=== PATIENT | male | born 1955 | race Caucasian/White ===

== ENCOUNTER → 2019-05-22 | Outpatient (CLI) | payer OTHER | LOC: CAT 10:48 | DX: Z13.6 Encounter for screening for cardiovascular disorders (principal); I25.10 Atherosclerotic heart disease of native coronary artery without angina pectoris; E78.00 Pure hypercholesterolemia, unspecified ==

== ENCOUNTER → 2019-06-21 | Outpatient (CLI) | payer OTHER | LOC: SJCVC 13:18 → SJCVCIMAG 13:18 | PROVIDERS: ATTEND Internal Medicine Cardiovascular Disease | DX: I65.23 Occlusion and stenosis of bilateral carotid arteries (principal); I25.119 Atherosclerotic heart disease of native coronary artery with unspecified angina pectoris; E78.00 Pure hypercholesterolemia, unspecified; K21.9 Gastro-esophageal reflux disease without esophagitis; M19.90 Unspecified osteoarthritis, unspecified site; Z79.899 Other long term (current) drug therapy ==

== ENCOUNTER → 2019-12-24 | Outpatient (CLI) | payer OTHER | LOC: SJCVC 13:33 | PROVIDERS: ATTEND Internal Medicine Cardiovascular Disease | DX: I25.10 Atherosclerotic heart disease of native coronary artery without angina pectoris (principal); I25.119 Atherosclerotic heart disease of native coronary artery with unspecified angina pectoris; R94.31 Abnormal electrocardiogram [ECG] [EKG]; R93.1 Abnormal findings on diagnostic imaging of heart and coronary circulation; E78.00 Pure hypercholesterolemia, unspecified; I65.23 Occlusion and stenosis of bilateral carotid arteries; Z79.899 Other long term (current) drug therapy ==

== ENCOUNTER → 2020-07-22 | Outpatient (CLI) | payer OTHER | LOC: SJCVCIMAG 07:42 | PROVIDERS: ATTEND Internal Medicine Cardiovascular Disease | DX: I11.9 Hypertensive heart disease without heart failure (principal); I49.9 Cardiac arrhythmia, unspecified; R93.1 Abnormal findings on diagnostic imaging of heart and coronary circulation; I25.119 Atherosclerotic heart disease of native coronary artery with unspecified angina pectoris; E78.00 Pure hypercholesterolemia, unspecified; R06.00 Dyspnea, unspecified; I65.23 Occlusion and stenosis of bilateral carotid arteries; K21.9 Gastro-esophageal reflux disease without esophagitis; G47.33 Obstructive sleep apnea (adult) (pediatric); Z98.890 Other specified postprocedural states; Z79.82 Long term (current) use of aspirin; Z79.899 Other long term (current) drug therapy; Z87.891 Personal history of nicotine dependence ==

== ENCOUNTER → 2021-04-05 | Outpatient (CLI) | payer OTHER | LOC: SJCVC 13:08 | PROVIDERS: ATTEND Internal Medicine Cardiovascular Disease | DX: R93.1 Abnormal findings on diagnostic imaging of heart and coronary circulation (principal); I10 Essential (primary) hypertension; E78.00 Pure hypercholesterolemia, unspecified; I77.9 Disorder of arteries and arterioles, unspecified; K21.9 Gastro-esophageal reflux disease without esophagitis; G47.33 Obstructive sleep apnea (adult) (pediatric); E78.5 Hyperlipidemia, unspecified; I25.10 Atherosclerotic heart disease of native coronary artery without angina pectoris; Z79.899 Other long term (current) drug therapy; Z87.891 Personal history of nicotine dependence ==

== ENCOUNTER → 2021-05-14 | Outpatient (CLI) | payer OTHER ==
[~2021-05-14] MED LIST: AVALIDE 300-121 EACH PO; CETIRIZINE PO; DESYREL150 MG PO; LIPITOR 20 MG T20 M1 PO; MELATONIN10 M3 PO; MELOXICAM15 MG PO; METHOCARBAMOL500 M2 PO; NEXIUM 40 MG CA40 M1 PO; RESTORIL15 M1 PO; TOPROL XL25 MG PO
== END ==
LOC: SJCVCIMAG 05-13 15:12
PROVIDERS: ATTEND Internal Medicine Cardiovascular Disease
DX: I25.9 Chronic ischemic heart disease, unspecified (principal); R94.39 Abnormal result of other cardiovascular function study; I10 Essential (primary) hypertension; E78.00 Pure hypercholesterolemia, unspecified; R93.1 Abnormal findings on diagnostic imaging of heart and coronary circulation; I77.9 Disorder of arteries and arterioles, unspecified; K21.9 Gastro-esophageal reflux disease without esophagitis; E78.5 Hyperlipidemia, unspecified; I25.10 Atherosclerotic heart disease of native coronary artery without angina pectoris; Z87.891 Personal history of nicotine dependence; Z79.899 Other long term (current) drug therapy

== ENCOUNTER → 2021-05-17 | Outpatient (CLI) | payer OTHER ==
[~2021-05-17] VITALS: Ht 172.7 cm; Wt 108.9 kg
[2021-05-18 08:45] VITALS: BP 115/64
[2021-05-18 08:52] LABS: HEMATOCRIT 43.6 % (42.0-52.0); HEMOGLOBIN 14.9 gm/dL (14.0-18.0); MCH 28.3 pg (26.0-34.0); MCHC 34.1 g/dL (28.0-37.0); MCV 83.2 fL (80.0-100.0); RBC 5.25 mil/uL (4.50-6.00); RDW 12.7 % (10.5-14.5); WBC 5.5 thou/uL (4.0-11.0)
[2021-05-18 09:14] LABS: CALCIUM 9.2 mg/dL (8.5-10.1); POTASSIUM 4.1 mmol/L (3.5-5.1)
--- NOTE | 2021-05-19 16:56 | CATHLAB ---
[facility] [place] [address] INVASIVE PROCEDURE REPORT Name: CRISTALSHARON Debra Room #: REG KRISTIN Herring#: [id number] Admission: 05/17/21 Attend Phys: Ludwig Samaniego MD, Discharge: Date of : 51 Report #: [id number] THIS REPORT FOR: cc: Josiah Reid John E. DO Mancuso, Gerald M. MD [facility] ~ APPROVED REPORT Study performed: 05/18/2021 09:53:24 Patient Details Patient Status: Out-Patient Room #: The patient is a 65 year-old male Event Personnel Ludwig Samaniego Component Design Engineer, Anyi Ruiz RTR ScrGee cunningham Ja'net RTR Monitor, Balwinder Osuna RN RN, Stephen Perez RN barrel loader Performed Art Access - R femoral artery* Left Heart Cath w/or w/o Coronaries [id number] [facility] Hemostasis w/ Mynx 60721 Initial Mod Sed Same Phys/QHP Gr5y [id number] Indication Chest pain Procedure Narrative The patient was brought electively to the Cardiac Catheterization Laboratory and was prepped and draped in a sterile manner. The Right Groin^ was infiltrated with 1% Lidocaine subcutaneous anesthesia. A PINNACLE 6FR Sheath #[id number] sheath was inserted into the RFA^. Coronary angiography was performed using coronary diagnostic catheters. The right coronary system was accessed and visualized with a JR4 catheter. The left coronary system was accessed and visualized with a JL4 catheter. The left ventricle was accessed and visualized with a PIGTAIL catheter. An aortogram of the abdominal aorta was performed. Closure device was deployed with a Fr MYNXGRIP 6/7F #[id number]. There was no hematoma. Intraoperative Conscious Sedation Sedation start time: 10:36 Case end Time: 11:06 Fentanyl 50 mcg Versed 2 mg [facility] [place] [address] INVASIVE PROCEDURE REPORT Name: SHARON BEE Room #: ADAN Herring#: [id number] Admission: 05/17/21 Attend Phys: Ludwig Samaniego, Discharge: Date of : 51 Report #: [id number] Fluoro Time: 2.40 minutes Dose: DAP 7721.00 cGycm2 971 mGy Contrast Type and Amount: Omnipaque 115 ml Hemodynamics The aortic pressure is 127/60 mmHg with a mean of 85 mmHg. The left ventricular pressure is 125/3 mmHg with a mean of mmHg. The left ventricular end diastolic pressure is 20 mmHg. Conclusion #1 Normal left ventricular size and systolic function EF 60%. #2 abdominal aortic gram revealing normal caliber abdominal aorta no evidence of aneurysm brisk distal flow. #3 there is no actual left main. There are separate ostium of both LAD and circumflex. #4 the LAD is mildly diseased and tapers to a small caliber vessel at the apex. Diffusely diseased. But no indication for intervention. #5 the circumflex OM is large and dominant system. Large caliber high rising OM/ramus branch and large in the AV groove giving rise to the posterior lateral branches distally all widely patent #6 small nondominant right coronary artery. Recommendations and plan: Continue aggressive risk factor modification. There is no indication for coronary intervention. Subtle abnormality in the stress test is consistent with a diffusely diseased and small mid distal LAD system. Follow-up will be arranged. <ELECTRONICALLY SIGNED> By: Ludwig Samaniego MD, FACC 05/19/211655 55 55 Ludwig Samaniego MD, FACC /INF
== END | disposition home or self-care (01) ==
LOC: CATH 13:27
PROVIDERS: ATTEND Internal Medicine Cardiovascular Disease
DX: R07.9 Chest pain, unspecified (principal); I25.10 Atherosclerotic heart disease of native coronary artery without angina pectoris; R94.39 Abnormal result of other cardiovascular function study; I10 Essential (primary) hypertension; E78.5 Hyperlipidemia, unspecified; M19.90 Unspecified osteoarthritis, unspecified site; K21.9 Gastro-esophageal reflux disease without esophagitis; G47.00 Insomnia, unspecified; E66.9 Obesity, unspecified; G47.33 Obstructive sleep apnea (adult) (pediatric); Z98.890 Other specified postprocedural states; Z79.899 Other long term (current) drug therapy; Z87.891 Personal history of nicotine dependence